=== PATIENT | male | born 1970 | race African-American/Black ===

== ENCOUNTER 2022-12-10 14:18 | Emergency (ER) | payer SELFPAY ==
[2022-12-10 16:37] LABS: Bilirubin Neg (Negative); Blood, Urine Negative (Negative); Clarity Clear (Clear); Glucose, Urine (Dipstick) Normal (Negative); Ketone, Urine Negative (Negative); Leukocyte Negative (Negative); Nitrite Negative (Negative); Protein, Urine (Dipstick) Negative (Neg-Trace); Urobilinogen Normal mg/dL (Less than 2)
== END 2022-12-10 17:26 | disposition home or self-care (01) ==
LOC: CSHERS 14:18
DX: N50.811 Right testicular pain (principal); F17.210 Nicotine dependence, cigarettes, uncomplicated
CPT/HCPCS: 76870; 81003; 93976